=== PATIENT | male | born 1985 | race Caucasian/White ===

== ENCOUNTER 2017-04-22 10:56 | Emergency (ER) | payer BC ==
[~2017-04-22] VITALS: Ht 185.4 cm; Wt 65.2 kg
[~2017-04-22 10:56] MED LIST: ERYT.5%O LEFT EYE; PANT20 PO
[2017-04-22 10:58] VITALS: BP 125/75; PULSE 78; RESP 16; TEMP 97.8; O2SAT 99
[2017-04-22] MEDS ORDERED: MYCO250 PO (11:07)
[2017-04-22] MEDS ORDERED: AMIT50TA3 PO (11:07)
[2017-04-22] MEDS ORDERED: RANI300T PO (11:07)
[2017-04-22] MEDS ORDERED: DICY10CA12 PO (11:07)
[2017-04-22] MEDS ORDERED: PRED20 PO (11:14)
[2017-04-22] MEDS ORDERED: NON-500T13 PO (11:14)
[2017-04-22] MEDS ORDERED: ORPH100T99 PO (11:14)
--- NOTE | 2017-04-22 11:17 | PD ---
HPI Chief Complaint: Pain: Acute or Chronic Time Seen by Provider: 11:05 Travel History International Travel<30 days: No Contact w/Intl Traveler<30days: No Traveled to known affect area: No History of Present Illness HPI 31-year-old male presents the emergency Department with a four-day history of left sided cervical neck pain, stiffness, and spasm into the left arm. Patient denies any specific injury. He states he woke up with it on Wednesday. Patient has been trying [id number] medications, heat, ice, and stretching without improvement. Patient denies headache, numbness, tingling, or weakness in the left upper extremity. Pain is a 6 out of 10. Pain is worse with motion of the neck or left upper arm. Patient is allergic to Flexeril and Percocet. PFSH Past Medical History Hx Anticoagulant Therapy: No Asthma: Yes Autoimmune Disease: Yes (Lupus) Diabetes: No Diminished Hearing: No GERD: Yes Influenza Vaccination: No ?: Not Social History Alcohol Use: No Tobacco Use: Yes (vape pen with nicotien) Substance Use: No Allergies-Medications (Allergen,Severity, Reaction): Coded Allergies: Flexeril (Verified Adverse Reaction, Intermediate, VOMITING, 04/22/17) Percocet (Verified Adverse Reaction, Intermediate, VOMITING, 04/22/17) Reported Meds & Prescriptions Reported Meds & Active Scripts Active Non-Aspirin Pain Relief ES (Acetaminophen) 500 Mg Tab 1,000 Mg PO Q6HR PRN Prednisone 20 Mg Tab 20 Mg PO BID Orphenadrine CR (Orphenadrine Citrate) 100 Mg Tab 100 Mg PO Q12HR Reported Amitriptyline (Amitriptyline HCl) 50 Mg Tab 50 Mg PO HS Ranitidine (Ranitidine HCl) 300 Mg Tab 300 Mg PO HS Dicyclomine (Dicyclomine HCl) 10 Mg Cap 10 Mg PO TID PRN Cellcept (Mycophenolate Mofetil) 250 Mg Cap 1,000 Mg PO BID Review of Systems General / Constitutional: No: Fever Eyes: No: Visual changes HENT: No: Headaches Cardiovascular: No: Chest Pain or Discomfort Respiratory: No: Shortness of Breath Gastrointestinal: No: Abdominal Pain Genitourinary: No: Dysuria Musculoskeletal: No: Pain Skin: No Rash Neurologic: No: Weakness Psychiatric: No: Depression Endocrine: No: Polydipsia Hematologic/Lymphatic: No: Easy Bruising Physical Exam Narrative GENERAL: Patient appears in mild distress. SKIN: Warm and dry. Normal color. Normal turgor. No rash. HEAD: Atraumatic. Normocephalic. EYES: Pupils equal and round. No scleral icterus. No injection or drainage. ENT: No nasal bleeding or discharge. Mucous membranes pink and moist. Pharynx is clear. Airway is patent. NECK: Trachea midline. No bony tenderness or step-off. Patient does have palpable spasm and tenderness along the left paraspinous and scalene muscles. Range of motion is somewhat limited secondary to discomfort in the left soft tissues of the cervical spine. CARDIOVASCULAR: Regular rate and rhythm. RESPIRATORY: No accessory muscle use. Clear to auscultation. Breath sounds equal bilaterally. MUSCULOSKELETAL: Extremities without clubbing, cyanosis, or edema. No obvious deformities. Patient is both tenderness and spasm in the left trapezius and subscapularis muscles consistent with spasmodic torticollis and muscle spasm. Range of motion is full and without loss of function. Patient has no increased pain with axial pressure to the top of his head. NEUROLOGICAL: Awake and alert. No obvious cranial nerve deficits. Motor grossly within normal limits. Five out of 5 muscle strength in the arms and legs. Normal speech. PSYCHIATRIC: Appropriate mood and affect; insight and judgment normal. Data Data Last Documented VS Vital Signs Date Time Temp Pulse Resp B/P Pulse Ox O2 Delivery O2 Flow Rate FiO2 04/22/17 10:58 97.8 78 16 125/75 99 MDM Medical Decision Making Medical Screen Exam Complete: Yes Emergency Medical Condition: Yes Differential Diagnosis Spasmodic torticollis. Muscle spasm. Cervical radiculopathy. Narrative Course Patient is felt to have spasmodic torticollis. Radiographic imaging is not felt warranted at this time. Patient will be treated with prednisone 20 mg twice a day 5 days. Patient also given Norflex 100 mg twice a day #20. Patient is given acetaminophen 500 mg she states she tabs every 6 hours when necessary pain #16. Patient is use heat and ice and gentle stretching as discussed. Work note is given. Patient follow up if symptoms are not improving with the above treatment plan. Diagnosis Primary Impression: Spasmodic torticollis Referrals: Primary Care Physician Patient Instructions: General Instructions Departure Forms: Work Release Enter return to work date: Apr 24, 2017 Additional Instructions: Patient is felt to have spasmodic torticollis. Radiographic imaging is not felt warranted at this time. Patient will be treated with prednisone 20 mg twice a day 5 days. Patient also given Norflex 100 mg twice a day #20. Patient is given acetaminophen 500 mg she states she tabs every 6 hours when necessary pain #16. Patient is use heat and ice and gentle stretching as discussed. Work note is given. Patient follow up if symptoms are not improving with the above treatment plan. Scripts Acetaminophen (Non-Aspirin Pain Relief ES)500 Mg Tab1,000 Mg PO Q6HR PRN (PAIN) #60 TAB Prov:Charly Yates MD 04/22/17 Prednisone 20 Mg Tab20 Mg PO BID #10 TAB Prov:Charly Yates MD 04/22/17 Orphenadrine ER 12 HR (Orphenadrine CR)100 Mg [id number] Mg PO Q12HR #20 TAB Prov:Charly Yates MD 04/22/17 Disposition: 01 DISCHARGE HOME Condition: Stable Alonzo Ramírez Apr 22, 2017 11:17
== END 2017-04-22 11:27 | disposition home or self-care (01) ==
LOC: PHEFT 10:56
DX: G24.3 Spasmodic torticollis (principal)
CPT/HCPCS: 99284

== ENCOUNTER 2017-05-01 12:22 | Emergency (ER) | payer BC ==
[~2017-05-01] VITALS: Ht 185.4 cm; Wt 68.4 kg
[~2017-05-01 12:22] MED LIST changes: +AMIT50TA3 PO; +DICY10CA12 PO; -ERYT.5%O LEFT EYE; +MYCO250 PO; +NON-500T13 PO; +ORPH100T99 PO; -PANT20 PO; +PRED20 PO; +RANI300T PO
[2017-05-01 12:23] VITALS: BP 119/69; PULSE 95; RESP 16; TEMP 98; O2SAT 98
[2017-05-01] MEDS ORDERED: TRAM50TA PO (12:33)
[2017-05-01] MEDS ORDERED: predniSONE 20 MG TAB PO ONE (12:45)
[2017-05-01] MEDS ORDERED: diphenhydrAMINE HCL 25 MG CAP PO ONE (12:45)
[2017-05-01] MEDS ORDERED: PRED20 PO (12:48)
--- NOTE | 2017-05-01 12:49 | PD ---
HPI Chief Complaint: Skin Problem Time Seen by Provider: 12:43 Travel History International Travel<30 days: No Contact w/Intl Traveler<30days: No Traveled to known affect area: No History of Present Illness HPI 31-year-old male presents to the emergency department for evaluation of erythema , itching, rash that started today. Patient states he has started Norflex approximately1 week ago which is a new medication for him. He has a history of an allergy to Flexeril. He also states that he restarted his tramadol yesterday. Patient states he has been on tramadol for quite a while for knee pain. Patient denies any chest pain or shortness breath. No difficulty breathing or swallowing. No abdominal pain. Nausea, vomiting, diarrhea. Patient states he is on Norflex or torticollis. PFSH Past Medical History Hx Anticoagulant Therapy: No Asthma: Yes Autoimmune Disease: Yes (Lupus) Diabetes: No Diminished Hearing: No GERD: Yes Immunizations Current: No Tetanus Vaccination: < 5 Years Influenza Vaccination: No Past Surgical History Surgical History: No Previous Surgery Social History Alcohol Use: Yes (occ) Tobacco Use: Yes (vape pen with nicotien) Substance Use: No Allergies-Medications (Allergen,Severity, Reaction): Coded Allergies: Flexeril (Verified Adverse Reaction, Intermediate, VOMITING, 05/01/17) Percocet (Verified Adverse Reaction, Intermediate, VOMITING, 05/01/17) Reported Meds & Prescriptions Reported Meds & Active Scripts Active Non-Aspirin Pain Relief ES (Acetaminophen) 500 Mg Tab 1,000 Mg PO Q6HR PRN Orphenadrine CR (Orphenadrine Citrate) 100 Mg Tab 100 Mg PO Q12HR Reported Tramadol (Tramadol HCl) 50 Mg Tab 50 Mg PO Q8H PRN Amitriptyline (Amitriptyline HCl) 50 Mg Tab 50 Mg PO HS Ranitidine (Ranitidine HCl) 300 Mg Tab 300 Mg PO HS Dicyclomine (Dicyclomine HCl) 10 Mg Cap 10 Mg PO TID PRN Cellcept (Mycophenolate Mofetil) 250 Mg Cap 1,000 Mg PO BID Review of Systems Except as stated in HPI: all other systems reviewed are Neg Physical Exam Narrative GENERAL: Well-nourished, well-developed male patient, afebrile. SKIN: Focused skin assessment warm/dry. Patient has small erythematous areas to the torso, upper extremities. HEAD: Normocephalic. Atraumatic. ENT: Mucosa pink and moist. No erythema or exudates. No uvular edema. No uvular , palatal, or tonsillar deviation. Airway patent. Nasal turbinates appear normal without nasal blood, purulent drainage or septal hematoma. Bilateral tympanic membranes are clear without erythema or perforation. EYES: No scleral icterus. No injection or drainage. NECK: Supple, trachea midline. No JVD or lymphadenopathy. CARDIOVASCULAR: Regular rate and rhythm without murmurs, gallops, or rubs. RESPIRATORY: Breath sounds equal bilaterally. No accessory muscle use. Lungs sounds are clear to auscultation. GASTROINTESTINAL: Abdomen soft, non-tender, nondistended. MUSCULOSKELETAL: No cyanosis, or edema. Data Data Last Documented VS Vital Signs Date Time Temp Pulse Resp B/P Pulse Ox O2 Delivery O2 Flow Rate FiO2 05/01/17 12:23 98.0 95 16 119/69 98 Orders Prednisone (Deltasone) (05/01/17 12:45) Diphenhydramine (Benadryl) (05/01/17 12:45) MDM Medical Decision Making Medical Screen Exam Complete: Yes Emergency Medical Condition: Yes Medical Record Reviewed: Yes Differential Diagnosis Allergic reaction versus contact dermatitis versus urticaria Narrative Course 31-year-old male presents to the emergency department for evaluation of itching , rash that started today. He states that he recently started Norflex and believes this reaction to the Norflex. Allergy is added. Patient is given prednisone 40 mg by mouth and Benadryl 25 mg by mouth. He appears well on exam. I instructed him to follow up with his primary care physician for further medication changes. He'll be discharged a short-term prescription for prednisone. He verbalizes agreement and understanding. The patient was discharged in stable condition with instructions, including return instructions and follow up instructions. Diagnosis Primary Impression: Allergic reaction Qualified Code: T78.40XA - Allergic reaction, initial encounter Referrals: Primary Care Physician 2 days Patient Instructions: General Allergic Reaction (ED), General Instructions Additional Instructions: Stop taking Norflex. Take prednisone as directed. Start this tomorrow. Over the counter Benadryl 25-50mg every 6-8 hours as needed for itching. Follow up with your primary care physician. Return to the emergency department for any acute, worsening of symptoms. Med/Other Pt SpecificInfo: Prescription(s) given Scripts Prednisone 20 Mg Tab40 Mg PO DAILY 3 Days Ref 0 Prov:Jihan Ramirez 05/01/17 Disposition: 01 DISCHARGE HOME Condition: Stable Jihan Ramirez May 01, 2017 12:49
== END 2017-05-01 13:00 | disposition home or self-care (01) ==
LOC: PHED 12:22
DX: T78.40XA Allergy, unspecified, initial encounter (principal)
CPT/HCPCS: 99283; J7512

== ENCOUNTER 2018-01-12 14:40 | Emergency (ER) | payer BC ==
[~2018-01-12] VITALS: Ht 185.4 cm; Wt 71.3 kg
[~2018-01-12 14:40] MED LIST changes: +ORPH100T2 PO; -ORPH100T99 PO; +TRAM50TA PO
[2018-01-12 14:43] VITALS: BP 118/55; PULSE 83; RESP 20; TEMP 98.9; O2SAT 99
[2018-01-12] MEDS ORDERED: TIZA2CAP3 PO (14:51)
--- NOTE | 2018-01-12 14:54 | PD ---
HPI Chief Complaint: Injury Time Seen by Provider: 14:47 Travel History International Travel<30 days: No Contact w/Intl Traveler<30days: No Traveled to known affect area: No History of Present Illness HPI 32-year-old male presents emergency department for evaluation of right elbow pain after skateboarding accident that occurred just prior to arrival. Patient states he was skateboarding and landed directly on his elbow and had pain immediately. Says his pain is worse with rotation of the forearm and flexion of the elbow. He denies any numbness or tingling. Says he may have injured his wrist as well however, denies any pain with range of motion or palpation of his wrist. Says his right shoulder has an abrasion as well and feels as if it is swelling. Denies limit to ROM but he has tenderness of the anterior shoulder joint. Denies head trauma. Denies neck or back pain. Denies injuries elsewhere. He has no other complaints today. PFSH Past Medical History Hx Anticoagulant Therapy: No Asthma: Yes Autoimmune Disease: Yes (Lupus) Diabetes: No Diminished Hearing: No Gastrointestinal Disorders: Yes (IBS) GERD: Yes Immunizations Current: No ?: Not Social History Alcohol Use: Yes (occ) Tobacco Use: Yes (vape pen with nicotien) Substance Use: No Allergies-Medications (Allergen,Severity, Reaction): Coded Allergies: orphenadrine (Unverified Allergy, Mild, Rash, 01/12/18) acetaminophen (Unverified Adverse Reaction, Intermediate, VOMITING, ) cyclobenzaprine (Unverified Adverse Reaction, Intermediate, VOMITING, 01/12) oxycodone (Unverified Adverse Reaction, Intermediate, VOMITING, 01/12/18) Reported Meds & Prescriptions Reported Meds & Active Scripts Active Reported Tizanidine (Tizanidine HCl) 2 Mg Cap Unknown Dose PO TID Amitriptyline (Amitriptyline HCl) 50 Mg Tab 50 Mg PO HS Ranitidine (Ranitidine HCl) 300 Mg Tab 300 Mg PO HS Dicyclomine (Dicyclomine HCl) 10 Mg Cap 10 Mg PO TID PRN Cellcept (Mycophenolate Mofetil) 250 Mg Cap 1,000 Mg PO BID Review of Systems Except as stated in HPI: all other systems reviewed are Neg Physical Exam Narrative GENERAL: Well-nourished, well-developed patient. SKIN: Focused skin assessment warm/dry. HEAD: Normocephalic. Atraumatic. EYES: No scleral icterus. No injection or drainage. PERRLA, EOMI NECK: Supple, trachea midline. No JVD or lymphadenopathy. No midline tenderness. CARDIOVASCULAR: Regular rate and rhythm without murmurs, gallops, or rubs. RESPIRATORY: Breath sounds equal bilaterally. No accessory muscle use. GASTROINTESTINAL: Abdomen soft, non-tender, nondistended. MUSCULOSKELETAL: No cyanosis, or edema. right elbow- mild TTP to medial epicondyle, limited ROM secondary to pain, pain with rotation of forearm and flexion. No pops, clicks or deformities noted. Right shoulder- superficial abrasion to anterior shoulder, mild TTP to AC joint without deformities. limited ROM secondary to pain. right wrist- full ROM without deformities. Non tender to palpation. Neurovascularly intact RUE. BACK: Nontender without obvious deformity. No CVA tenderness. No midline tenderness to palpation Data Data Last Documented VS Vital Signs Date Time Temp Pulse Resp B/P (MAP) Pulse Ox O2 Delivery O2 Flow Rate FiO2 01/12/18 14:43 98.9 83 20 118/55 (76) 99 Orders Orders Elbow, Complete (4 Vws) (01/12/18 ) Acetamin-Hydrocod 325-5 Mg ([facility] 5-325 (01/12/18 15:00) Shoulder, Limited(2vws) (01/12/18 ) Support Splint (01/12/18 15:43) Ed Discharge Order (01/12/18 15:49) MDM Medical Decision Making Medical Screen Exam Complete: Yes Emergency Medical Condition: Yes Differential Diagnosis Right shoulder contusion, right shoulder fracture, right shoulder abrasion, right elbow fracture, right elbow abrasion, right elbow contusion Narrative Course 32-year-old male presents emergency department for evaluation of right elbow pain that started after a skateboard accident that occurred just prior to arrival. The exam demonstrates tenderness palpation of the medial epicondyles and decreased range of motion of the right elbow. 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 Shoulder has a superficial abrasion to the anterior aspect. Upon evaluation patient did not have significant tenderness palpation however, because he believes that the shoulder is swollen and is painful and the elbow may be a distracting injury, x-ray the shoulder as well. He is otherwise neurovascularly intact. Grade 5/5 strength. Patient says he takes hydrocodone multiple times daily for chronic knee pain. His last dose was this morning. Will administer hydrocodone for his elbow pain in the emergency department. Last Impressions Shoulder X-Ray 01/12/18 0000 Signed Impressions: Service Date/Time: Friday, January 12, 2018 15:00 - CONCLUSION: Negative for fracture or dislocation. Follow up in 7-10 days is suggested if symptoms persist. Stuart Fonseca MD FACR Elbow X-Ray 01/12/18 0000 Signed Impressions: Service Date/Time: Friday, January 12, 2018 14:56 - CONCLUSION: Minimally displaced radial head fracture. Stuart Fonseca MD FACR Patient states he has medication at home for his pain. States that he will try to follow-up with an inventory management specialist tomorrow. I strongly advised to follow-up within 1 week for further evaluation. A posterior long-arm splint was applied to the elbow with sling. Advised that he should not remove this splint until evaluated by orthopedic physician. Patient use Tylenol or Motrin per package instructions for pain relief. Follow-up with the primary care physician for further evaluation. Return to the emergency department for worsening or persistent symptoms. Diagnosis Primary Impression: Shoulder contusion Qualified Codes: S40.011A - Contusion of right shoulder, initial encounter Additional Impression: Elbow fracture, right Qualified Codes: S42.401A - Unspecified fracture of lower end of right humerus , initial encounter for closed fracture Referrals: Darshan Darling MD Orthopedist Additional Instructions: Follow-up with an orthopedic physician within 1 week for evaluation and treatment. Do not remove the splint into her evaluated by an inventory management specialist. Use ice or heat for symptom relief. Elevate the joint above the heart to reduce swelling. You may use compression with Micheal wrap or similar to reduce swelling. If symptoms persist or worsen, return to the emergency department. Follow up with your primary care physician within 2 days. Disposition: 01 DISCHARGE HOME Condition: Stable Anette Leary Jan 12, 2018 14:54
[2018-01-12] MEDS ORDERED: ACETAMINOPHEN/HYDROcodone 325 MG/5 MG TAB PO ONE (15:00)
--- NOTE | 2018-01-12 15:39 | RADRPT ---
EXAM DATE/TIME: 01/12/2018 14:56 [facility] COMPARISON: No previous studies available for comparison. INDICATIONS : Right elbow pain post fall while skateboarding today. MEDICAL HISTORY : Gastroesophageal reflux disease. Lupus. Asthma. SURGICAL HISTORY : None. ENCOUNTER: Initial ACUITY: 1 day PAIN SCORE: 10/10 LOCATION: Right elbow FINDINGS: Minimally displaced radial head fracture. Anatomic alignment. Large joint effusion. CONCLUSION: Minimally displaced radial head fracture. Stuart Fonseca MD FACR on January 12, 2018 at 15:36 Board Certified Radiologist. This report was verified electronically.
--- NOTE | 2018-01-12 15:39 | RADRPT ---
EXAM DATE/TIME: 01/12/2018 15:00 [facility] COMPARISON: No previous studies available for comparison. INDICATIONS : Right shoulder pain post fall while skateboarding today. MEDICAL HISTORY : Gastroesophageal reflux disease. Lupus. Asthma. SURGICAL HISTORY : None. ENCOUNTER: Initial ACUITY: 1 day PAIN SCORE: 5/10 LOCATION: Right shoulder FINDINGS: Two view examination of the right shoulder demonstrates no evidence of fracture or dislocation. The glenohumeral and acromioclavicular joints are maintained. Bony mineralization is normal. CONCLUSION: Negative for fracture or dislocation. Follow up in 7-10 days is suggested if symptoms persist. Stuart Fonseca MD FACR on January 12, 2018 at 15:37 Board Certified Radiologist. This report was verified electronically.
== END 2018-01-12 16:29 | disposition home or self-care (01) ==
LOC: PHEFT 14:40
DX: S52.121A Displaced fracture of head of right radius, initial encounter for closed fracture (principal); S40.011A Contusion of right shoulder, initial encounter; J45.909 Unspecified asthma, uncomplicated; M32.9 Systemic lupus erythematosus, unspecified; K21.9 Gastro-esophageal reflux disease without esophagitis; F17.290 Nicotine dependence, other tobacco product, uncomplicated; V00.131A Fall from skateboard, initial encounter; Z87.19 Personal history of other diseases of the digestive system; Z79.899 Other long term (current) drug therapy
CPT/HCPCS: 29105; 73030; 73080